=== PATIENT | male | born 1990 | race Caucasian/White ===

== ENCOUNTER 2019-12-27 18:13 | Emergency (ER) | payer SELFPAY ==
[~2019-12-27] VITALS: Ht 167.6 cm; Wt 67.0 kg
[~2019-12-27 18:13] MED LIST: CALCIUM CHLORIDE 1GM/10ML SYR IV ONE; EPINEPHRINE 0.1MG/ML (1:10,000) 10ML SYR ONE; ETOMIDATE 2MG/ML 10ML VIAL IV ONE; SODIUM CHLORIDE 0.9% 10ML VIAL ONE; SUCCINYLCHOLINE CHLORIDE 200MG/10ML IV ONE
[2019-12-27] MEDS ORDERED: KETOROLAC 60MG/2ML VIAL IM ONE (19:00)
[2019-12-27] MEDS ORDERED: PROPOFOL 10MG/ML 100ML 100 ML IV ONE (19:53)
[2019-12-27] MEDS ORDERED: SUCCINYLCHOLINE CHLORIDE 200MG/10ML IV ONE (20:00)
[2019-12-27] MEDS ORDERED: LEVETIRACETAM 1000 MG/100 ML IV SCH (20:00)
[2019-12-27] MEDS ORDERED: ETOMIDATE 2MG/ML 10ML VIAL IV ONE (20:00)
[2019-12-27] MEDS ORDERED: SODIUM CHLORIDE 3% 500ML IV SOLN IV ONE (20:30)
[2019-12-27] MEDS ORDERED: SODIUM CHLORIDE 3% 100 ML IV NR (20:45)
[2019-12-27 21:04] LABS: BASOPHILS % 0.3 % (0.0-2.0); EOSINOPHILS % 0.3 % (0.0-5.0); HEMOGLOBIN. 8.4 g/dL (14.0-18.0); LYMPHOCYTES % 13.7 % (20.0-50.0); MEAN CORPUSCULAR HEMOGLOBIN 29.9 pg (28.0-32.0); MEAN PLATELET VOLUME 8.8 fl (7.4-10.4); NEUTROPHILS % 79.7 % (40.0-76.0); PLATELET 156 x1000/uL (130-400); RED BLOOD CELL COUNT 2.82 mill/uL (4.7-6.1)
[2019-12-27] MEDS ORDERED: NOREPINEPHRINE 4MG/250ML PMX 250 ML IV NR (21:07)
[2019-12-27 21:12] LABS: CHLORIDE 116 mEq/L (98-107)
[2019-12-27 21:14] LABS: INR 1.5; PROTHROMBIN TIME 15.6 sec (9.6-11.0)
[2019-12-27] MEDS ORDERED: CALCIUM CHLORIDE 1GM/10ML SYR IV ONE (21:30)
[2019-12-27] MEDS ORDERED: KCL 20MEQ/100ML PREMIX 100 ML IV SCH (21:30)
[2019-12-27] MEDS ORDERED: POTASSIUM CHLORIDE INJ 40 MEQ in DEXT 5% WATER 500 ML IV ONE (21:30)
[2019-12-27 21:52] VITALS: BP 119/68
== END 2019-12-27 23:10 | disposition short-term general hospital (02) ==
LOC: ER 18:13
DX: I62.9 Nontraumatic intracranial hemorrhage, unspecified (principal); R55 Syncope and collapse; I46.9 Cardiac arrest, cause unspecified
CPT/HCPCS: 31500; 36415; 36556; 70450; 70496; 70498; 71045; 80053; 82962; 84484; 85025; 85610; 94002; 96365; 96366; 96372; 96375; 99291; J0330; J1885; J1953; J2704; J3480; J3490; Z7610; J7060